=== PATIENT | male | born 1960 | race Two or more races ===

== ENCOUNTER 2025-03-21 18:57 | Emergency (ER) | payer SELFPAY ==
[~2025-03-21] VITALS: Ht 182.9 cm; Wt 100.0 kg
[2025-03-21 19:05] VITALS: BP 188/110; PULSE 61; RESP 18; TEMP 37; O2SAT 98
[2025-03-21] MEDS: HYDROCODONE/ACETAMINOPHEN 5/325MG TABLET PO ONE (20:44)
[2025-03-21] MEDS: BACITRACIN ZINC OINT UDPKT TOP ONE (21:00)
[2025-03-21] MEDS ORDERED: BO1 TP (21:08)
[2025-03-21] MEDS ORDERED: SULF1TAB48 MT (21:08)
[2025-03-21] MEDS ORDERED: HYDR-4009 MT (21:12)
== END 2025-03-21 21:32 | disposition home or self-care (01) ==
LOC: ER 18:57
DX: S80.211A Abrasion, right knee, initial encounter (principal); M54.40 Lumbago with sciatica, unspecified side; I10 Essential (primary) hypertension; Z79.899 Other long term (current) drug therapy; X58.XXXA Exposure to other specified factors, initial encounter; Y93.89 Activity, other specified; Y92.89 Other specified places as the place of occurrence of the external cause; Y99.8 Other external cause status
CPT/HCPCS: 99283